=== PATIENT | male | born 1960 | race Caucasian/White ===

== ENCOUNTER 2024-10-02 18:04 | Emergency (ER) | payer OTHER, SELFPAY ==
--- NOTE | 2024-10-02 18:05 | ED_ITS ---
HPI - General Adult General Chief complaint: Dental/Oral Stated complaint: Irritated Tongue Time Seen by Provider: 10/02/24 18:56 Source: patient, RN notes reviewed and old records reviewed Mode of arrival: ambulatory Limitations: no limitations History of Present Illness HPI narrative: 64-year-old male presents to the [facility] with and irritated, on healing wounds to his tongue. Patient reports that he has open lesions. Reports that he ?bites off the taste buds on the front and tip of his tongue. States that they normally heal pretty quickly. States the to on the anterior portion of the tongue has not healed in over a week and half. Onset (ago): week(s) (1.5) Related Data Allergies Allergy/AdvReac Type Severity Reaction Status Date / Time No Known Allergies Allergy Verified 10/02/24 18:26 Review of Systems Review of Systems: All systems reviewed & are unremarkable except as noted in HPI and below Constitutional: Constitutional: Reports no additional constitutional complain ts ENT: Reports as per HPI Cardiovascular: Cardiovascular: Reports no additional cardiovascular complaints, Denies chest pain and Denies dyspnea Respiratory: Respiratory: Reports no additional respiratory complaints, Denies chest congestion, Denies cough and Denies dyspnea Musculoskeletal: Musculoskeletal: Reports no additional musculoskeletal complaints Integumentary/Breasts: Skin/Breast: Reports system reviewed and no additional complaints, except as docu PMFSH Comments At the time of my signature, I reviewed and agree with the nursing past medical, surgical, social, and family history. There is no relevant family history pertinent to the patient complaint. Exam Const: General: cooperative, healthy appearing, comfortable, no acute distress, well developed, alert and well nourished Nutritional Appearance: well nourished Orientation/consciousness: patient oriented x3 Limitations: no limitations HENMT: Head: normal to inspection Ears: hearing grossly normal bilaterally, external ears normal, TM's normal bilaterally, EAC's normal and mastoids normal Mouth: Yes Normal oral and palatal mucosa present, Yes lip normal and Yes other (Multiple lesions noted to tongue. Open) Throat: posterior oropharynx normal, uvula midline and no uvular edema Eyes: General: appearance normal, both eyes and all related structures Alignment and Position: alignment normal Neck: Neck: normal visual inspection, full ROM, no lymphadenopathy and no meningeal signs Chest: Chest palpation & inspection: normal inspection of the chest Resp: Effort & Inspection: normal respiratory effort and able to speak in complete sentences Cardio: Rate: regular rate Skin: General skin exam: normal color and no rashes or lesions noted Neuro: General: patient oriented x3, gait normal, moves all extremities and no meningeal signs Cognition (Neuro): normal cognition Speech: normal speech Gait exam (Neuro): Normal gait present Extrem: General: normal to inspection, full ROM, capillary refill normal and normal gait Psych: Appearance: grossly normal and well kempt Mental Status: mental status grossly normal Speech and movement: Normal speech and movement present and Clear speech present Affect: normal affect Attitude: cooperative Course Course Level of Care: Express Care Visit Vital Signs Vital signs: Vital Signs Temperature 97.1 F L 10/02/24 18:21 Pulse Rate 88 10/02/24 18:21 Respiratory Rate 16 10/02/24 18:21 Blood Pressure 179/90 H 10/02/24 18:21 Pulse Oximetry 99 10/02/24 18:21 Oxygen Delivery Room Air 10/02/24 18:21 Temperature 97.1 F L 10/02/24 18:21 Pulse Rate 88 10/02/24 18:21 Respiratory Rate 16 10/02/24 18:21 Blood Pressure 179/90 H 10/02/24 18:21 Pulse Oximetry 99 10/02/24 18:21 Oxygen Delivery Room Air 10/02/24 18:21 Reviewed Medical Decision Making MDM Narrative Medical decision making narrative: Patient sitting comfortably in exam room. Nontoxic, vitals stable. Patient in no acute distress Patient presents for on healing lesions to the tongue for 1.5 weeks. Multiple concerns discussed with patient, will cover for infection, unlikely. Discussed on healing lesions to the tongue may need further evaluation, encourage patient to follow-up with primary care provider as well for his blood pressure. Patient appropriate for outpatient treatment and follow-up Discharge instructions reviewed with patient, as well as provided in writing per nursing staff. The instructions also include specific and strict return/GO TO THE ER as well as f/u information. All questions have been answered, and the patient deny any further questions with discharge and discharge plan. Some parts of this dictation were generated by voice recognition software and may contain typographical and/or grammatical inaccuracies. Medical Records Medical records reviewed: Yes I reviewed the external patient's medical records. Vital Signs Vital Signs: Vital Signs Temperature 97.1 F L 10/02/24 18:21 Pulse Rate 88 10/02/24 18:21 Respiratory Rate 16 10/02/24 18:21 Blood Pressure 179/90 H 10/02/24 18:21 Pulse Oximetry 99 10/02/24 18:21 Oxygen Delivery Room Air 10/02/24 18:21 Temperature 97.1 F L 10/02/24 18:21 Pulse Rate 88 10/02/24 18:21 Respiratory Rate 16 10/02/24 18:21 Blood Pressure 179/90 H 10/02/24 18:21 Pulse Oximetry 99 10/02/24 18:21 Oxygen Delivery Room Air 10/02/24 18:21 Reviewed Lab Data Lab results reviewed: Yes I reviewed the patient's lab results. Labs: Reviewed Critical Care Time Critical Care Time Critical Care Time: No Discharge Plan Discharge Clinical Impression: Tongue lesion Patient Disposition: Home, Self-Care Condition: Stable Instructions: Antibiotic Form, Mouth Care (ED) Additional Instructions: Today your blood pressure was 179/90. Is important to follow-up with your primary care provider within 2 weeks to have this rechecked. Concerns on lesions that are not healing under tongue. We are covering with an antibiotic in case there is an underlying infection. If they continue not to heal he you really need to follow-up either with ENT or a dental provider or your primary care provider Is important to maintain good oral hygiene, brushing teeth twice a day and using a good mouthwash such as Orajel or Listerine For new or worsening symptoms go directly to the emergency room Patient Language: Estonian Prescriptions: New cephalexin 500 mg capsule 500 mg PO Q8H 7 Days Qty: 21 0RF Follow-up/Referrals: UNKNOWN,DOCTOR [Non-Staff] - Stand Alone Forms: Work/School Release IP Time of Disposition: 19:08
[2024-10-02 18:21] VITALS: BP 179/90; PULSE 88; RESP 16; TEMP 36.2; O2SAT 99
== END 2024-10-02 19:12 | disposition home or self-care (01) ==
PROVIDERS: Emergency Provider Nurse Practitioner
DX: K13.79 Other lesions of oral mucosa (principal)
CPT/HCPCS: 99203; G0463